=== PATIENT | female | born 1960 | race Two or more races ===

== ENCOUNTER → 2021-03-03 | Outpatient (CLI) | payer OTHER ==
[2021-02-06 11:38] VITALS: BP 116/66
[~2021-03-03] MED LIST: CYCL10TA2 PO; GADOTERATE 7.5 MMOL/15ML VIAL. IVP ONE; HYDR-2761 PO
[2021-03-03 11:42] LABS: CREATININE 0.8 mg/dL (0.6-1.0); GFR 72.9
--- NOTE | 2021-03-04 14:07 | RAD ---
EXAM: MRI LEFT HINDFOOT WITH AND WITHOUT IV CONTRAST DATE: 03/03/2021 11:05 AM CLINICAL INDICATION: Reason: LEFT FOOT FLUID COLLECTION ON ARCH, 15ML CLARISCAN / Spl. Instructions: / History: COMPARISON: None. TECHNIQUE: Multiplanar, multisequence MR imaging of the left foot with and without IV contrast FINDINGS: Evaluation for internal derangement of the ankle is limited as exam was tailored for the evaluation o f the fluid collection/mass. Within these constraints: No ankle joint effusion. Medial and lateral flexor tendons as well as extensor tendons of the ankle are intact. Achilles tendo n is intact. Physiologic retrocalcaneal bursal fluid. Mild thickening of the plantar fascia with asso ciated edema and fluid cleft with mild marrow edema within the calcaneal attachment. The spring ligament is intact. The medial and lateral ankle ligaments are grossly intact. Syndesmotic ligaments are not included in the [id number]. At the plantar aspect of the midfoot, there is a 1.8 x 0.6 x 2.8 cm T2 hyperintense, T1 hypointense e nhancing lesion with serpentine, atelectatic component immediately overlying the central band of the plantar fascia. Ectatic ectatic vessels are seen in the region of the midfoot and hindfoot between the intrinsic musc les of the foot. No fracture or osteonecrosis. IMPRESSION: 1. 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 Electronically signed by: Jesús Delatorre MD (03/04/2021 2:05 PM) MERYL
== END ==
LOC: MRI 11:12 → MERGE 11:12
PROVIDERS: ATTEND Physician Assistant Medical
DX: M85.672 Other cyst of bone, left ankle and foot (principal); M79.89 Other specified soft tissue disorders
CPT/HCPCS: 36415; 73720; 82565; A9575